=== PATIENT | male | born 1975 | race African-American/Black ===

== ENCOUNTER 2016-11-16 12:44 | Observation (INO) ==
[2016-11-16] MEDS ORDERED: Aspirin 81 MG TAB.CHEW PO ONE (12:55)
--- NOTE | 2016-11-16 13:08 | Emergency Department Note ---
Disposition Clinical Impression: Chest pain Qualifiers: Chest pain type: unspecified Qualified Code(s): R07.9 - Chest pain, unspecified Disposition: Admitted As Inpatient Condition: Fair Referrals: NONE,PCP [Primary Care Provider] - Forms: ED Satisfaction Letter Time of Disposition: 14:18 Chest Pain HPI - General Chief Complaint: ED Chest Pain Stated Complaint: Ekg changes Time Seen by Provider: 11/16/16 12:46 Source: patient Limitations: no limitations Vital Signs Reviewed: Yes Nursing Notes Reviewed: Yes - History of Present Illness HPI Narrative: 41-year-old who comes in complaining of chest pain and shortness of breath. Patient describes pain in his chest up into his left neck. Complains of some pain in his left shoulder region which radiates into his neck. Patient also describes the numbness in his left arm for the last 2 weeks. Onset (ago): week(s) (2) Duration: intermittent Onset: during rest, during exertion Pain Location: substernal, left chest Severity: moderate Severity scale (1-10): 6 Quality: tightness, heaviness Pain Radiation: LUE, neck Improves with: nothing Worsens with: nothing Context: other (History of previous fracture in the left arm resulting in some weakness of the hand) Treatments prior to arrival chest pain: none - Related Data Home Medications Medication Instructions Recorded Confirmed No Known Home Drugs 11/16/16 11/16/16 Allergies Allergy/AdvReac Type Severity Reaction Status Date / Time Penicillins Allergy Swelling Verified 11/16/16 12:48 of Lip/Tongue/Throat All systems ED: reviewed and negative except as stated. Constitutional: Denies: fever, chills, weakness, weight change Eyes: Denies: eye pain, eye discharge, vision change ENT ED: Denies: ear pain, throat pain, dental pain, hearing loss, epistaxis, congestion, dysphagia Cardiovascular: Denies: chest pain, palpitations, dyspnea on exertion, edema, syncope Respiratory: Denies: cough, dyspnea, wheezes, hemoptysis, stridor Gastrointestinal: Denies: abdominal pain, nausea, vomiting, diarrhea, constipation, hematemesis, melena, hematochezia Genitourinary: Denies: urgency, dysuria, frequency, hematuria Musculoskeletal: Denies: back pain, neck pain, arthralgia, myalgia Integumentary: Denies: rash, abrasion, lesions Neurological: Denies: headache, weakness, numbness, paresthesias, confusion, abnormal gait, vertigo Psychiatric: Denies: anxiety, depression, suicidal thoughts, homicidal thoughts , auditory hallucinations, visual hallucinations Endocrine: Denies: fatigue Hematological/Lymphatic: Denies: easy bleeding, easy bruising Allergic/Immunologic: Denies: facial swelling, urticaria Chest Pain PMH - Past Medical History Medical history: Reports: no medical history - Social History Smoking Status: Current every day smoker Alcohol use: Reports: occasionally Drug use: Reports: none Physical Exam - General Limitations: no limitations General appearance: alert, in no apparent distress Course - Reevaluation(s) Reevaluation #1: 41-year-old with risk factors comes in with intermittent chest pain. Workup in the emergency department is negative he also complains of some neck discomfort with radiation to his arm. Seems to have about 2 things going on it does appear that he may have a radiculopathy but he also has been having some intermittent chest pain but admits to rule out his chest pain and he may need a MRI of his neck to evaluate his radicular pain. Time: 14:16 - Consultations Consultation #1: Discussed with , admit. Time: 14:17 Vital Signs Temperature 97.9 F 11/16/16 12:45 Pulse Rate 80 11/16/16 12:45 Respiratory Rate 16 11/16/16 12:45 Blood Pressure 157/109 11/16/16 12:45 O2 Sat by Pulse Oximetry 97 11/16/16 12:45 Temperature 97.9 F 11/16/16 12:45 Pulse Rate 78 11/16/16 14:06 Respiratory Rate 18 11/16/16 14:06 Blood Pressure 133/95 11/16/16 14:06 O2 Sat by Pulse Oximetry 97 11/16/16 14:06 Oxygen Delivery Oxygen Delivery Room Air Chest Pain - Lab Data Lab results reviewed: Yes I reviewed the patient's lab results. Result diagrams: 11/16/16 13:13 11/16/16 13:13 Lab Results 11/16/16 11/16/16 11/16/16 Range/Units 13:13 13:13 13:13 WBC 8.2 (4.3-11.1) K/mcL RBC 5.55 H (4.19-5.50) M/mcL Hgb 15.3 (12.9-16.9) g/dL Hct 47.0 (37.5-50.1) % MCV 84.7 (83.0-100.0) fL MCH 27.6 L (28.0-33.3) pg MCHC 32.6 (31.6-35.5) g/dL RDW 14.7 H (11.5-14.5) % Plt Count 281 (140-400) K/mcL MPV 9.0 L (9.4-12.4) fL Immature Gran % 0.1 (0-4) % Seg Neutrophils % 52.8 % Lymphocytes % 34.8 % Monocytes % 9.6 % Eosinophils % 2.3 % Basophils % 0.4 % Neutrophils # 4.4 (1.6-8.9) K/mcL Lymphocytes # 2.9 (0.6-4.6) K/mcL Monocytes # 0.8 (0.0-1.3) K/mcL Eosinophils # 0.2 (0.0-0.6) K/mcL Basophils # 0.0 (0.0-0.2) K/mcL Immature Plt Fraction 3.1 (1.1-6.1) % PT 10.8 (9.4-12.1) Seconds INR 1.0 APTT 33.1 (26.0-36.0) Seconds Sodium 138 (136-145) mEq/L Potassium 4.1 (3.5-4.5) mEq/L Chloride 107 (98-109) mEq/L Carbon Dioxide 24 (19-29) mEq/L BUN 12 (8-26) mg/dL Creatinine 0.91 (0.72-1.25) mg/dL Est GFR ( Amer) > 60 (> 60) Est GFR (Non-Af Amer) > 60 (> 60) BUN/Creatinine Ratio 13 (6-26) Glucose 93 (70-99) mg/dL Calculated Osmolality 285 (280-300) Calcium 9.7 (8.6-10.8) mg/dL Troponin I (0-0.03) ng/mL 11/16/16 Range/Units 13:13 WBC (4.3-11.1) K/mcL RBC (4.19-5.50) M/mcL Hgb (12.9-16.9) g/dL Hct (37.5-50.1) % MCV (83.0-100.0) fL MCH (28.0-33.3) pg MCHC (31.6-35.5) g/dL RDW (11.5-14.5) % Plt Count (140-400) K/mcL MPV (9.4-12.4) fL Immature Gran % (0-4) % Seg Neutrophils % % Lymphocytes % % Monocytes % % Eosinophils % % Basophils % % Neutrophils # (1.6-8.9) K/mcL Lymphocytes # (0.6-4.6) K/mcL Monocytes # (0.0-1.3) K/mcL Eosinophils # (0.0-0.6) K/mcL Basophils # (0.0-0.2) K/mcL Immature Plt Fraction (1.1-6.1) % PT (9.4-12.1) Seconds INR APTT (26.0-36.0) Seconds Sodium (136-145) mEq/L Potassium (3.5-4.5) mEq/L Chloride (98-109) mEq/L Carbon Dioxide (19-29) mEq/L BUN (8-26) mg/dL Creatinine (0.72-1.25) mg/dL Est GFR ( Amer) (> 60) Est GFR (Non-Af Amer) (> 60) BUN/Creatinine Ratio (6-26) Glucose (70-99) mg/dL Calculated Osmolality (280-300) Calcium (8.6-10.8) mg/dL Troponin I 0.01 (0-0.03) ng/mL - Radiology Data Radiology results reviewed: Yes I reviewed the patient's radiology results. Chest X-Ray 11/16/16 12:55 IMPRESSION: 1. No active pulmonary disease. D/ / Marvin Cortes MD / Marvin Cortes MD Interpreting Provider: Marvin Cortes MD - EKG Data EKG attestation: Yes I reviewed and interpreted this EKG. EKG shows normal: sinus rhythm Rate: normal Rhythm: NSR Interpretation: no acute changes Heart Score - Score History: Slightly Suspicious EKG: Non Specific repolarisation Disturbance Age: Less than 45 Risk Factors: 1-2 risk factors Troponin: Less than normal limit HEART Score Total: 2
[2016-11-16 13:20] LABS: Basophils % 0.4 %; Eosinophils # 0.2 K/mcL (0.0-0.6); Eosinophils % 2.3 %; Hemoglobin 15.3 g/dL (12.9-16.9); Immature Granulocytes % 0.1 % (0-4); Immature Platelets 3.1 % (1.1-6.1); Lymphocytes # 2.9 K/mcL (0.6-4.6); Lymphocytes % 34.8 %; Mean Corpuscular HGB Conc 32.6 g/dL (31.6-35.5); Mean Corpuscular Hemoglobin 27.6 pg (28.0-33.3); Mean Corpuscular Volume 84.7 fL (83.0-100.0); Monocytes # 0.8 K/mcL (0.0-1.3); Monocytes % 9.6 %; Neutrophils # 4.4 K/mcL (1.6-8.9); Platelet Count 281 K/mcL (140-400); Red Blood Count 5.55 M/mcL (4.19-5.50); Red Cell Distribution Width 14.7 % (11.5-14.5); Segmented Neutrophils % 52.8 %
[2016-11-16 13:25] LABS: Prothrombin Time 10.8 Seconds (9.4-12.1)
[2016-11-16 13:28] LABS: Activated Partial Thrombo Time 33.1 Seconds (26.0-36.0)
[2016-11-16 13:36] LABS: BUN/Creatinine Ratio 13 (6-26); Blood Urea Nitrogen 12 mg/dL (8-26); Carbon Dioxide 24 mEq/L (19-29); Chloride 107 mEq/L (98-109); Potassium 4.1 mEq/L (3.5-4.5); Sodium 138 mEq/L (136-145)
[2016-11-16 13:37] LABS: Calcium 9.7 mg/dL (8.6-10.8); Glucose 93 mg/dL (70-99); Osmolality,Calculated 285 (280-300); eGFR For African Americans > 60 (> 60); eGFR For Non-African Americans > 60 (> 60)
[2016-11-16] MEDS ORDERED: *HR* HYDROcodone/Acet 5/325 mg TABLET PO ONE (13:58)
[2016-11-16] MEDS ORDERED: Ondansetron 4 MG/2 ML VIAL IVP PRN (15:26)
[2016-11-16] MEDS ORDERED: Acetaminophen 325 MG TABLET PO PRN (15:26)
[2016-11-16] MEDS ORDERED: Naloxone 0.4 MG/ML INJ IVP PRN (15:26)
[2016-11-16] MEDS ORDERED: Nitroglycerin 0.4 MG TAB.SUBL SL PRN (15:31)
--- NOTE | 2016-11-16 16:29 | Internal Med History&Physical ---
<Yeny Hidalgo - Last Filed: 11/16/16 16:46> Date of Encounter: 11/16/16 Time of Encounter: 15:00 Assessment and Plan (1) Chest pain Current visit: Yes Status: Acute 1 patient was awakened from sleep with left arm numbness radiating to his neck as well as stabbing left chest pain. He does have a past history of hypertension which she has not been compliant with any medication he is also a smoker. EKG was concerning for changes however upon review it appears there and no significant ST changes. There is some concern for LVH. First set of cardiac troponin is 0.01 we will continue to trend 2 we will obtain a cardiac echo 3 we will continue cardiac monitoring 4 continue with aspirin we will give statin obtain lipid profile 5 we will initiate beta heidi and lisinopril 6 patient has been experiencing chest pain we will give nitroglycerin as well as morphine-had anticipated on stress test in a.m. however chest pain continues we will hold off for now 7 oxygen as needed 8 consult cardiology as needed 9 encourage patient to stop smoking Qualifiers: Chest pain type: unspecified Qualified Code(s): R07.9 - Chest pain, unspecified (2) Hypertension, uncontrolled Current visit: Yes Status: Acute 1 patient has blood pressure 151 on 09. She states that he has been diagnosed with hypertension however he does not take any blood pressure medication. We will initiate lisinopril as well as metoprolol 2 continuous cardiac monitoring (3) Traumatic arthropathy Current visit: Yes Status: Acute 1 patient has been experiencing numbness into his left arm. He had a traumatic injury in 2014. He was supposed to undergo surgery on her cast R he infuse at that time. He did follow with Dr. Minaya in June of this year and was offered surgery however he has not followed up since. We will continue with Vicodin as needed for pain. Patient will need to follow up with orthopedics as out patient (4) Tobacco abuse Current visit: Yes Status: Acute Patient smokes a half a pack a day encouraged patient to stop smoking nicotine patch as needed Internal Medicine - H&P: HPI Chief complaint: CP Admitted From: Emergency Dept Plans for Post Hospital Care: Home History of present illness: Mr. Damon is a 41 year old male past medical history of hypertension and traumatic arthroplathy of the left wrist. According to the patient he was awakened from sleep experiencing left arm numbness that radiated to his left neck as well as a sharp stabbing pain in his left chest he rated 10 out of 10 he did experience diaphoresis nausea vomiting and he was short of breath. The pain was constant, there were no relieving factors Jordan did state that coughing sitting forward and deep breathing aggravated the pain. He states pain continued all morning it was intermittent and is more like an ache he did get to urgent care EKG was obtained which was concerning and he was sent to ER for evaluation. On arrival to the ER he was given 4 baby aspirin as well as some Vicodin and EKG was obtained his troponin was 0.01 chest x-ray with no acute process. EKG did show some ST inversion in 3 elevation in V2 V3 and V4 with compared to previous EKG really not changed. Appears to be indicative of LVH. He has been admitted for further workup and evaluation presently the patient does complain of 6 out of 10 chest pressure as well as his left arm has been none. He has had a past injury to this arm and she has not had followed up on these supposed to have surgery. He has not completed that. We will give patient some sublingual nitroglycerin C that improves his chest pain. His lung sounds are clear heart sounds are regular S1 and S2 with no rubs, gallops or murmurs noted abdomen soft nontender he has pulses present all 4 extremities brisk capillary refill no pedal edema. He is somewhat hypertensive as well he states that he has been diagnosed with hypertension however he has not taken any medication. I did review this case as well as EKGs with Dr. Richardson who agrees with plan Past Med Surg Social Fam HX - Past Medical History Medical history: no medical history - Social History Smoking Status: Current every day smoker Smokeless Tobacco Status: No Alcohol use: occasionally Drug use: none - Family History Mother Living Status: Still Living Hx Family Cardiac Disorders: Yes (Hypertension) Father Living Status: Still Living Hx Family Cardiac Disorders: Yes (Hypertension) Internal Medicine - H&P: Meds No Known Home Drugs 11/16/16 [History] 3 Allergy/AdvReac Type Severity Reaction Status Date / Time Penicillins Allergy Swelling Verified 11/16/16 12:48 of Lip/Tongue/Throat All Systems PM: A 10-system review of systems was performed and is negative for pertinent findings except as documented above in the HPI. - Constitutional Constitutional: no chills, no fever(s), no night sweats - EENT Eyes: no change in vision, no discharge, no pain, no photophobia Nose, mouth and throat: no dysphagia, no nasal discharge, no neck pain, no sore throat - Cardiovascular Cardiovascular ROS IM: chest pain, no diaphoresis, no dyspnea, no lightheadedness, no palpitations, no syncope - Gastrointestinal Gastrointestinal: nausea, vomiting - Musculoskeletal Musculoskeletal ROS IM: numbness, tingling - Integumentary Integumentary IM: no rash, no unusual bruising - Neurological Neurological ROS: no confusion, no convulsions, no focal weakness, no numbness, no tingling, no tremor(s) - Hematologic/Lymphatic Hematologic/Lymphatic: no easy bruising - Constitutional Vitals: Temp Pulse Resp BP Pulse Ox 98.0 F 74 16 150/97 97 11/16/16 15:46 11/16/16 15:46 11/16/16 15:46 11/16/16 15:46 11/16/16 15:46 General appearance: Present: A&O X 3, answers questions appropriately - Head Head exam: Present: atraumatic, normocephalic - Eye Eye exam: Present: PERRL, conjuntiva pink, sclera anicteric Pupils: Present: PERRL - Neck Neck exam general surgery: Present: supple, trachea midline. Absent: lymphadenopathy - Respiratory Respiratory exam: Present: CTAB. Absent: accessory muscle use, rales, rhonchi, wheezes - Cardiovascular Cardiovascular exam: Present: RRR, +S1, +S2. Absent: diastolic murmur, gallop, rubs, systolic murmur - GI/Abdominal GI/Abdominal exam: Present: normal bowel sounds, soft, no peritoneal signs. Absent: distended, tenderness - Extremities Exam Extremities exam: Present: normal capillary refill, normal inspection, tenderness, warm, radial pulses palpable and symmetrical. Absent: calf tenderness, cyanotic, pedal edema - Neurological Exam Neurological exam: Present: CN II-XII intact, oriented X3, no focal deficits. Absent: pronater drift, facial droop, speech deficit - Skin Skin exam: Present: dry, intact Internal Med - H&P Results - Labs CBC & Chem 7: 11/16/16 13:13 11/16/16 13:13 - EKG Data EKG shows normal: sinus rhythm - EKG Data Prior EKG available for review: yes When compared to previous EKG: there is no significant change - Diagnostic Studies Other Images Additional comments: Chest X-Ray 11/16/16 12:55 IMPRESSION: 1. No active pulmonary disease. D/ / Marvin Cortes MD / Marvin Cortes MD Interpreting Provider: Marvin Cortes MD <Alyse Richardson - Last Filed: 11/16/16 18:34> Date of Encounter: 11/16/16 Internal Medicine - H&P: HPI History of present illness: Mr. Damon is a 41 year old male All Systems PM: A 10-system review of systems was performed and is negative for pertinent findings except as documented above in the HPI. - Constitutional Vitals: Temp Pulse Resp BP Pulse Ox 98.0 F 74 16 150/97 97 11/16/16 15:46 11/16/16 15:46 11/16/16 15:46 11/16/16 15:46 11/16/16 15:46 Internal Med - H&P Results - Labs CBC & Chem 7: 11/16/16 13:13 11/16/16 13:13 - Attending Attestation I saw and examined pt independently. I have discussed with FORGE TENDER Tacho Hidalgo regarding the management plan. Agree with documentation. Pt has left side chest pain for 4 weeks, worsen on deep breath. Pt said pain getting worse on laying down and alleviated when sitting up. EKG cannot confirm pericarditis change. Will order Echo. Pt denies recent travel, leg pain, or leg swelling. No tachycardia or hypoxia. Low likely for PE. 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 Will also track 3 sets of troponin and keep pt on cardiac monitoring. Pt also has chest wall tenderness, it is also possible skeletomuscular pain. will place naproxen 250mg po bid.
[2016-11-16] MEDS: Nicotine 21 MG PATCH.TD24 TD SCH (16:52)
[2016-11-16] MEDS: *HR* Morphine 2 MG/ML SYRINGE IVP PRN (16:52)
[2016-11-16] MEDS: *HR* HYDROcodone/Acet 5/325 mg TABLET PO PRN (20:08)
[2016-11-17 01:54] LABS: Basophils % 0.3 %; Eosinophils # 0.2 K/mcL (0.0-0.6); Eosinophils % 2.8 %; Hematocrit 44.8 % (37.5-50.1); Hemoglobin 14.4 g/dL (12.9-16.9); Immature Granulocytes % 0.3 % (0-4); Immature Platelets 2.8 % (1.1-6.1); Lymphocytes # 3.6 K/mcL (0.6-4.6); Lymphocytes % 49.1 %; Mean Corpuscular HGB Conc 32.1 g/dL (31.6-35.5); Mean Corpuscular Hemoglobin 27.2 pg (28.0-33.3); Mean Corpuscular Volume 84.5 fL (83.0-100.0); Mean Platelet Volume 9.7 fL (9.4-12.4); Monocytes # 0.6 K/mcL (0.0-1.3); Monocytes % 7.9 %; Neutrophils # 2.9 K/mcL (1.6-8.9); Platelet Count 278 K/mcL (140-400); Red Cell Distribution Width 14.5 % (11.5-14.5); Segmented Neutrophils % 39.6 %
[2016-11-17 02:09] LABS: BUN/Creatinine Ratio 15 (6-26); Blood Urea Nitrogen 15 mg/dL (8-26); Calcium 9.2 mg/dL (8.6-10.8); Carbon Dioxide 25 mEq/L (19-29); Chloride 105 mEq/L (98-109); Chol/HDL Ratio 3.1 (0-4.9); Cholesterol 200 mg/dL (< 200); Glucose 142 mg/dL (70-99); HDL Cholesterol 65 mg/dL (40-59); LDL Cholesterol,Calculated 107 mg/dL (0-99); Magnesium 2.1 mg/dL (1.6-2.6); Osmolality,Calculated 291 (280-300); Potassium 3.9 mEq/L (3.5-4.5); Sodium 139 mEq/L (136-145); Triglycerides 140 mg/dL (< 150); eGFR For African Americans > 60 (> 60); eGFR For Non-African Americans > 60 (> 60)
[2016-11-17] MEDS: Aspirin 81 MG TAB.CHEW PO SCH (08:43)
[2016-11-17] MEDS: Nicotine 21 MG PATCH.TD24 TD SCH (08:59)
[2016-11-17] MEDS ORDERED: Regadenoson 0.4 MG/5 ML SYRINGE IVP ONE ×2 (11:33→11:44)
--- NOTE | 2016-11-17 14:32 | Nuclear Medicine Stress Report ---
Low Level Regadenoson Name: Abdullahi Damon Date of Study: 11/17/2016 Date: 1975 Ht: 73.0 in Medical Record#: [id number] Age: 41 Wt: 230.0 lb Gender: Male Order #: [id number] Location: [facility] Room: Supervising Provider: Jihan Cat CNP Reading Physician: Arabella Powers DO Ordering Physician: Gali Joshua CNP Primary Care Physician: None Stress Technologist: Dottie Bernal, PUBLICATIONS DESIGNER,CPFT Cellular Equipment Repairer: Lesa Vang Indications: Chest Pain Impression: There is a small defect involving the inferior apical wall and apex representing mild ischemia. No appreciable change in low level exercise ECG from baseline. Blood pressure initially increases but then drops at peak exercise. Gated EF = 45%. There is visual evidence of TID. Abnormal findings communicated to ordering provider. History: Hypertension Hypercholesteremia History of Smoking Stress Test Summary: Stress Test Type: Low level pharmacologic Regadenoson 0.4mg/5ml given IV Baseline Information: Initial Heart Rate: 72 Blood Pressure: 118/82 Stress Information: Stress Time: 4 min 00 sec Test Terminated Due to (primary): As per protocol Maximum Blood Pressure: 146/70 Maximum Heart Rate: 109 Percent Maximum Heart Rate Achieved: 62 Double Product: 18552 METS Reached: 2.1 Symptoms: Chest pain Nuclear Summary: SPECT myocardial perfusion imaging using Tc99m Sestamibi given intravenously was performed at rest and following cardiac stress testing. The resting images were obtained following initial dose of 10.9 mCi. Following stress an additional dose of 33.6 mCi was given at peak exercise or 30 seconds post regadenoson infusion. Medication Given: Time Medication Dose Units Route Findings: Stress Note * Resting ECG demonstrated normal sinus rhythm with early repolarization. * No appreciable change in low level exercise ECG from baseline. * Patient had no chest pain during stress. * No arrhythmias were noted during stress. Hemodynamic responses * Blood pressure decreases during stage 4 of exercise (146/70 during stage 2, decreasing to 116/60 during stage 4). Study Quality * Technically quality is fair. Gated EF % * Gated EF = 45%. Left Ventricle * LVEDV = LV is mildly dilated. TID * There is visual transient ischemic dilatation. Lung Uptake * There is no evidence of increase lung uptake. PERFUSION * There is a mild intensity perfusion defect involving the apical inferior wall and apex during stress. These findings represent mild ischemia. * Other segments demonstrated normal rest and stress perfusion. Updated by Arabella Powers on 11/17/2016 2:21:34 PM electronically signed on 11/17/2016 2:26:46 PM with status of Final
[2016-11-17] MEDS: *HR* Morphine 2 MG/ML SYRINGE IVP PRN ×2 (14:55→18:54)
--- NOTE | 2016-11-17 16:01 | Cardiology Consult Note ---
Date of Encounter: 11/17/16 Time of Encounter: 15:40 Assessment and Plan (1) Chest pain Current Visit: Yes Status: Acute Tropnins are not elevated on 2 readings. EKG from 11/16/16 compared to one from show no significant acute changes. His risk factors for CAD include history of smoking and obesity. Patient's stress test shows a borderline normal EF of 45%. The concerning result from the test was the evidence of TID, which can be indicative of multivessel disease, however it is not specific enough. Discussed with patient my recommendation to proceed with a cardiac catheterization tomorrow, for which he agreed. Qualifiers: Chest pain type: unspecified Qualified Code(s): R07.9 - Chest pain, unspecified (2) Hypertension Current Visit: Yes Status: Acute Patient's BP range has been from 119/79 - 150/97 in the past 24 hours. Continue Lopressor and lisinopril. Qualifiers: Qualified Code(s): I10 - Essential (primary) hypertension (3) Left arm pain Current Visit: Yes Status: Acute Unsure if L arm pain is related to any cardiac reasons. Giving the presence of the pain in his L arm before the onset of his chest pain and based on his physical exam, his pain seems more likely to be muscular in origin. He will need to follow-up with his PCP. Discussion w patient/family: The assessment and plan as outlined above was discussed with the patient and/or family members who expressed understanding and agreement. All questions were answered. Thank you for involving us in the care of your patient. Please call with any questions. History of Present Illness Consult date: 11/17/16 Requesting physician: Gali Joshua Consult reason: Abnormal stress test Chief complaint: Chest pain History of present illness: Mr. Damon is a 41 year old male with PMH of arthroplathy of the L wrist presents for chest pain. Patient says 2 nights ago, he was sleeping and suddenly started to develop chest pain with radiation to the L side of his neck. He describes the pain as sharp/stabbing, constant, rates it as a 10/10, and without any relieving factors. Deep breathing would aggravate the pain. He also admitted to diaphoresis, nausea, vomiting, and shortness of breath. Patient is also complaining of numbness/tingling in his L arm, but he says that has been going on for the past 2 weeks and had been present before the chest pain. Patient also describes that for the past 2 weeks, his quality of life has declined. The most active thing he would be able to do 2 weeks prior would be to play basketball, but now he experiences shortness of breath with just climbing a flight of stairs. He has also been experiencing nausea, vomiting, headaches, dizziness, and vision blurriness. He denies syncope. He also admits that he has been coughing for the past 2 weeks as well. He denies any fever, chills, or swelling. He is currently a smoker and has a 5 pack year history. His L arm pain and numbness has been constant for the past 2 weeks and says that raising his arm seems to aggravate the pain more. Past Med Surg Social Fam HX - Past Medical History Medical history: no medical history - Social History Smoking Status: Current every day smoker Smokeless Tobacco Status: No Alcohol use: occasionally Drug use: none - Family History Father Living Status: Still Living Hx Family Cardiac Disorders: Yes (HTN) Mother Living Status: Still Living Hx Family Cardiac Disorders: Yes (HTN) Hx Family Respiratory Disorders: Yes (COPD) Medications and Allergies No Known Home Drugs 11/16/16 [History] 3 Allergy/AdvReac Type Severity Reaction Status Date / Time Penicillins Allergy Swelling Verified 11/16/16 12:48 of Lip/Tongue/Throat All Systems Review: A 10-system review of systems was performed and is negative for pertinent findings except as documented above in the HPI. - Constitutional Constitutional: weakness, no headache(s) - Cardiovascular Cardiovascular: lightheadedness, palpitations, rapid heart rate, no chest pain at rest, no chest pain with exertion, no dyspnea at rest, no syncope - Respiratory Respiratory: no cough - Gastrointestinal Gastrointestinal: no abdominal pain - Neurological Neurological: numbness (L arm), tingling (L arm), no dizziness, no loss of vision Physical Examination Vital Signs, Last 4 Hours Temp Pulse Resp BP Pulse Ox 11/17/16 15:42 98.0 F 66 14 119/80 98 11/17/16 12:48 98.7 F 64 14 123/87 99 General: Conversant Neck: No JVD, Normal carotid pulses Cardiac: Reg Rate and Rhythm, Normal S1 and S2, No Murmur Lungs: Normal Breath Sounds, No Wheeze, Rales, Rhonchi Neuro: Alert and responsive Abdomen: Soft, Non-Tender Musculoskeletal: Other (Chest wall tenderness noted in upper L region. ) Extremities: No Clubbing, No Cyanosis, No Edema, Normal Pulses, Other (Patient has decreased sensation in his entire L arm. 4/5 strength in the L upper extremeity. 5/5 strength in the R upper extremeity. Patient displayed pain with internal rotation of the L arm.) Results 11/17/16 01:15 11/17/16 01:15 Lab Results 11/16/16 11/17/16 11/17/16 18:35 01:15 01:15 WBC 7.2 Hgb 14.4 Hct 44.8 Plt Count 278 D-Dimer Sodium Potassium Chloride Carbon Dioxide BUN Creatinine Glucose Calcium Magnesium Troponin I 0.00 0.00 11/17/16 11/17/16 01:15 01:15 WBC Hgb Hct Plt Count D-Dimer < 215 Sodium 139 Potassium 3.9 Chloride 105 Carbon Dioxide 25 BUN 15 Creatinine 1.00 Glucose 142 H Calcium 9.2 Magnesium 2.1 Troponin I - Imaging and Cardiology Stress Test: report reviewed (Small defect invlolving the inferior apical wall and apex representing mild ischemia. No appreciable change in low level exercise ECG from baseline. EF = 45%. Visuable evidence of TID.) Echo: report reviewed (LVEF 50-55%. Low normal LV systolid function. Evidence of mild diastolic dysfunction of the LV. Normal RV size and function. Mild mitral regurgitation. Without pulmonary hypertension.) - EKG Interpretation EKG results cardiology: personally reviewed (Compared EKG from 11/16/16 to 2006 and found no significant acute changes. Sinus rhythm. No ST elevations noted.) Consult Discharge Plan - Plan Referrals: NONE,PCP [Primary Care Provider] -
--- NOTE | 2016-11-17 17:06 | Internal Med Progress Note ---
Date of Encounter: 11/17/16 Time of Encounter: 16:30 - Assessment and plan (1) Chest pain Current Visit: Yes Status: Acute Assessment and plan: Patient currently complains of left shoulder pain, concern for possible anginal equivalent although his shoulder pain is reproducible with movement and palpation. Cannot entirely exclude anginal equivalent, continue morphine for pain. Troponin negative 3. Chest x-ray negative. Echocardiogram revealing ejection fraction of 50-55% with mild diastolic dysfunction. Stress test abnormal, cardiology is on board, plan is for left heart catheter tomorrow. Qualifiers: Chest pain type: unspecified Qualified Code(s): R07.9 - Chest pain, unspecified (2) Hypertension, uncontrolled Current Visit: Yes Status: Chronic Assessment and plan: Patient is aware that he has had high blood pressure in the past but states she does not take any medications and he has not had any follow-up with providers. Currently normotensive on low-dose lisinopril and beta heidi. Will monitor. (3) Tobacco abuse Current Visit: Yes Status: Chronic Assessment and plan: Declines counseling at this time. Nicotine replacement therapy. 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 He is supposed to have surgery on his left wrist however he states that this surgery would have put him in a cast for 5 months so he has refused to get this surgery. Recommend avoiding using left wrist for left heart catheter tomorrow if possible. On examination, patient's range of motion is limited in his shoulder secondary to pain. Concern for rotator cuff injury. He states his pain is been worsened and present in his shoulder for the last 2 weeks. He denies any recent injuries. Will rule out anginal equivalent with left heart catheter tomorrow. He will need to follow up outpatient with orthopedics. Patient attempted to reassure me that he would follow up if we set him up with a new primary care provider and with an orthopedic doctor. His however remains skeptical. Unfortunately, inpatient MRI of left shoulder would not be indicated -will need to be done on outpatient basis - Subjective Interval history: Patient seen and examined. On examination, patient sitting upright in bed conversing with his . Patient complaining of left shoulder and left arm pain that has been persistent for the past 2 weeks. Worsened with movement. He denies shortness of breath. He states he is hungry. - Constitutional Vitals: Temp Pulse Resp BP Pulse Ox 98.0 F 66 14 119/80 98 11/17/16 15:42 11/17/16 15:42 11/17/16 15:42 11/17/16 15:42 11/17/16 15:42 General appearance: Present: A&O X 3, pleasant, no acute distress, answers questions appropriately - Head Head exam: Present: atraumatic, normocephalic - Eye Eye exam: Present: PERRL, conjuntiva pink, sclera anicteric Pupils: Present: PERRL - Neck Neck exam general surgery: Present: supple, trachea midline. Absent: lymphadenopathy - Respiratory Respiratory exam: Present: CTAB. Absent: accessory muscle use, rales, respiratory distress, rhonchi, wheezes - Cardiovascular Cardiovascular exam: Present: RRR, +S1, +S2. Absent: diastolic murmur, gallop, rubs, systolic murmur - GI/Abdominal GI/Abdominal exam: Present: normal bowel sounds, soft, no peritoneal signs. Absent: distended, tenderness - Extremities Exam Extremities exam: Present: warm, radial pulses palpable and symmetrical. Absent : calf tenderness, cyanotic, pedal edema - Expanded Upper Extremities Exam Shoulder exam: Present: normal inspection, tenderness, tenderness over AC joint. Absent: full ROM (2/2 pain) Vascular exam: Present: normal capillary refill. Absent: vascular compromise - Neurological Exam Neurological exam: Present: alert, CN II-XII intact, normal gait, oriented X3, no focal deficits, strengths equal and symetr throughout. Absent: pronater drift, facial droop, speech deficit - Skin Skin exam: Present: dry, intact, normal color, warm Internal Medicine: Result - Labs CBC & Chem 7: 11/17/16 01:15 11/17/16 01:15 Labs: Short CBC 11/17/16 Range/Units 01:15 WBC 7.2 (4.3-11.1) K/mcL Hgb 14.4 (12.9-16.9) g/dL Hct 44.8 (37.5-50.1) % Plt Count 278 (140-400) K/mcL Neutrophils # 2.9 (1.6-8.9) K/mcL BMP 11/17/16 01:15 Sodium 139 Potassium 3.9 Chloride 105 Carbon Dioxide 25 BUN 15 Creatinine 1.00 Glucose 142 H Calcium 9.2 Cardiac Enzymes 11/16/16 11/17/16 Range/Units 18:35 01:15 Troponin I 0.00 0.00 (0-0.03) ng/mL - ABG Interpretation ABG results: PT/INR, D-dimer PT 10.8 Seconds (9.4-12.1) 11/16/16 13:13 D-Dimer < 215 ng/mLFEU (0-500) 11/17/16 01:15 Consult Discharge Plan - Plan Referrals: NONE,PCP [Primary Care Provider] -
--- NOTE | 2016-11-17 18:32 | Electrocardiograph Report ---
[address] [address] Test Date: 2016-11-16 Pat Name: Abdullahi Damon Department: 102 Room: 3B Gender: M Petroleum Production Engineer: : 1975 Requested By: Mitul Shaffer Order Number: [id number] Reading MD: Arabella Powers Measurements Intervals [place] Rate: 80 P: 53 CO: 167 QRS: 14 QRSD: 96 T: 0 QT: 373 QTc: 408 Interpretive Statements SINUS RHYTHM VOLTAGE CRITERIA FOR LVH EARLY REPOLARIZATION Electronically Signed On 11-17-2016 18:30:22 EDT by Arabella Powers
[2016-11-18] MEDS: *HR* Morphine 2 MG/ML SYRINGE IVP PRN ×2 (00:56→09:17)
[2016-11-18] MEDS: Aspirin 81 MG TAB.CHEW PO SCH (08:24)
[2016-11-18] MEDS: Nicotine 21 MG PATCH.TD24 TD SCH (09:16)
--- NOTE | 2016-11-18 09:23 | Pre-Sedation Evaluation ---
Pre-sedation evaluation - Pre-sedation checklist Date of procedure: 11/18/16 Procedure: [facility] Recent Vitals: Last Vital Signs Temp 97.7 F 11/18/16 07:32 Pulse 68 11/18/16 07:32 Resp 16 11/18/16 07:32 BP 123/72 11/18/16 07:32 Pulse Ox 97 11/18/16 07:32 H&P (including ROS) documented in medical record: Yes Previous reaction to sedatives/anesthetics: No Dietary Status: NPO after Midnight Airway Assessment: Patient can open mouth completely, TMJ function normal Dentition: No loose teeth or bridges ASA Classification *see protocol: CLASS II-Mild systemic disease Plan of Care: Pt appropriate candidate for procedure/moderate/conscious sedation , Risks/benefits of procedure/sedation discussed w/ patient/family
[2016-11-18] MEDS ORDERED: *HR* Morphine 2 MG/ML SYRINGE IVP ONE (09:56)
[2016-11-18] MEDS ORDERED: *HR* Morphine 2 MG/ML SYRINGE IVP PRN (09:57)
--- NOTE | 2016-11-18 10:19 | Internal Med Progress Note ---
Date of Encounter: 11/18/16 Time of Encounter: 09:30 - Assessment and plan (1) Chest pain Current Visit: Yes Status: Acute Assessment and plan: Patient currently complains of left shoulder pain, concern for possible anginal equivalent although his shoulder pain is reproducible with movement and palpation. Cannot entirely exclude anginal equivalent. Patient stating his pain was not helped with the current morphine dose, dosage increased at this time. Troponin negative 3. Chest x-ray negative. Echocardiogram revealing ejection fraction of 50-55% with mild diastolic dysfunction. Stress test abnormal, cardiology is on board, plan is for left heart catheter later today. ITS Impressions Chest X-Ray 11/16/16 12:55 IMPRESSION: 1. No active pulmonary disease. D/ / Marvin Cortes MD / Marvin Cortes MD Interpreting Provider: Marvin Cortes MD Echocardiogram Date of Study: 11/17/2016 Impressions: LVEF 50-55%. Low normal LV systolic function. There is evidence of mild diastolic dysfunction of the left ventricle. Normal right ventricular size and function. Mild mitral regurgitation. No pulmonary hypertension. Low Level Regadenoson Date of Study: 11/17/2016 Impression: There is a small defect involving the inferior apical wall and apex representing mild ischemia. No appreciable change in low level exercise ECG from baseline. Blood pressure initially increases but then drops at peak exercise. Gated EF = 45%. There is visual evidence of TID. Abnormal findings communicated to ordering provider. Qualifiers: Chest pain type: unspecified Qualified Code(s): R07.9 - Chest pain, unspecified (2) Hypertension, uncontrolled Current Visit: Yes Status: Chronic Assessment and plan: Patient is aware that he has had high blood pressure in the past but states she does not take any medications and he has not had any follow-up with providers. Currently normotensive on low-dose lisinopril and beta heidi. Will monitor. (3) Tobacco abuse Current Visit: Yes Status: Chronic Assessment and plan: Declines counseling at this time. Nicotine replacement therapy. 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 He is supposed to have surgery on his left wrist however he states that this surgery would have put him in a cast for 5 months so he has refused to get this surgery. Recommend avoiding using left wrist for left heart catheter tomorrow if possible. On examination, patient's range of motion is limited in his shoulder secondary to pain. Concern for rotator cuff injury. He states his pain is been worsened and present in his shoulder for the last 2 weeks. He denies any recent injuries. Will rule out anginal equivalent with left heart catheter later today. He will need to follow up outpatient with orthopedics. Patient attempted to reassure me that he would follow up if we set him up with a new primary care provider and with an orthopedic doctor. His however remains skeptical. Unfortunately, inpatient MRI of left shoulder would not be indicated -will need to be done on outpatient basis - Subjective Interval history: Patient seen and examined. On examination, patient resting supine in bed conversing with his . Patient stating he continues to have left shoulder pain and a dull ache to his left anterior chest. He states the pain was not abated with morphine and is requesting an increase in his dose. He denies shortness of breath at this time. - Constitutional Vitals: Temp Pulse Resp BP Pulse Ox 97.7 F 68 16 123/72 97 11/18/16 07:32 11/18/16 07:32 11/18/16 07:32 11/18/16 07:32 11/18/16 07:32 General appearance: Present: A&O X 3, pleasant, no acute distress, answers questions appropriately - Head Head exam: Present: atraumatic, normocephalic - Eye Eye exam: Present: PERRL, conjuntiva pink, sclera anicteric Pupils: Present: PERRL - Neck Neck exam general surgery: Present: supple, trachea midline. Absent: lymphadenopathy - Respiratory Respiratory exam: Present: chest wall tenderness, decreased breath sounds. Absent: accessory muscle use, rales, respiratory distress, rhonchi, wheezes - Cardiovascular Cardiovascular exam: Present: RRR, +S1, +S2. Absent: diastolic murmur, gallop, rubs, systolic murmur - GI/Abdominal GI/Abdominal exam: Present: normal bowel sounds, soft, no peritoneal signs. Absent: distended, tenderness - Extremities Exam Extremities exam: Present: warm, radial pulses palpable and symmetrical. Absent : calf tenderness, cyanotic, pedal edema - Expanded Upper Extremities Exam Shoulder exam: Present: normal inspection, tenderness, tenderness over AC joint Vascular exam: Present: normal capillary refill. Absent: vascular compromise - Neurological Exam Neurological exam: Present: alert, CN II-XII intact, oriented X3, no focal deficits, strengths equal and symetr throughout. Absent: pronater drift, facial droop, speech deficit - Skin Skin exam: Present: dry, intact, normal color, warm Internal Medicine: Result - Labs CBC & Chem 7: 11/17/16 01:15 11/17/16 01:15 - ABG Interpretation ABG results: PT/INR, D-dimer PT 10.8 Seconds (9.4-12.1) 11/16/16 13:13 D-Dimer < 215 ng/mLFEU (0-500) 11/17/16 01:15 Consult Discharge Plan - Plan Referrals: NONE,PCP [Primary Care Provider] -
[2016-11-18] MEDS ORDERED: *HR* Heparin 10,000 UNIT/10 ML VIAL ONE (14:20)
[2016-11-18] MEDS ORDERED: Verapamil 5 MG/2 ML VIAL ONE (14:20)
[2016-11-18] MEDS ORDERED: Nitroglycerin 1,000 MCG/10 ML VIAL IV ONE (14:20)
[2016-11-18] MEDS ORDERED: Heparin 1,000 UNITS/500 mL NS 500 ML ONE (14:20)
[2016-11-18] MEDS ORDERED: 0.9 % Sodium Chloride 2,000 ML ONE (14:20)
[2016-11-18] MEDS ORDERED: *HR* Midazolam HCl 2 MG/2 ML VIAL ONE (14:42)
[2016-11-18] MEDS ORDERED: *HR* FentaNYL (PF) 100 MCG/2 ML VIAL ONE (14:43)
--- NOTE | 2016-11-18 15:37 | Invasive Diagnostic Lab Proc ---
Name: Abdullahi Damon Date of Study: 11/18/2016 Date: 1975 Ht: 72.8in Medical Record#: [id number] Age: 41 Wt: 238.54lb Gender: Male BSA: 2.31 Order #: [id number] BMI: 31.65 Physicians Procedure Physician: Tanner Hagan MD, [facility] Referring MD: Referring MD: Staff Name Position Time In Geovani, Vladimir RN Zanjero 02:31 PM Nubia Hancock RN Monitor 02:31 PM Selma Brown RN Nurse 02:31 PM Jv Atkinson RT (R) Scrub 02:31 PM Leticia Connors RT (R) Monitor 02:31 PM Indications Indication Abnormal Test - Stress Procedures Performed Procedure L HRT ARTERY/VENTRICLE ANGIO Pre-Procedure Checklist Pt not NPO for procedure and MD aware. Blood Pressure: 123/72 Plan of Care Patient will tolerate the procedure without complications. Adequate level of comfort will be maintained. Hemodynamics will remain stable Patient will recover from procedure without complications. Respiratory function will be maintained. Cardiac rhythm will remain stable. Patient temperature will be maintained. Patient and/or family have verbalized understanding of the procedure. Patient Education Chief Complaint/Reason for Test: Cardiac Cath Developmental Category: Adult (18-64 years) Developmentally Appropriate for Age: Yes Learning Barriers: None Education Needs: Procedure Education Method: Verbal Information Taught: Cardiac Cath Educational Evaluation: Able to repeat information Intravenous Access Time IV Size Location DC'd Fluid/Drip Rate Units RN 20g 1 1/" Patent On Arrival Rt Antecubital Allergies PCN Vital Signs Time BP (mmHg) HR (bpm) O2 Sat. RR (bpm) LOC 123 / 72 68 97 % 16 02:45 PM / % 5 = Fully awake and oriented or at pre-proc level 02:45 PM / % 4 = Oriented but drowsy 03:00 PM / % 4 = Oriented but drowsy 02:44 PM 133 / 82 60 100 % 02:50 PM 124 / 79 65 100 % 18 02:54 PM 125 / 79 68 98 % 13 03:00 PM 120 / 75 61 99 % 14 03:05 PM 109 / 60 67 97 % 14 03:10 PM 116 / 56 65 97 % 13 03:15 PM 114 / 58 72 97 % 14 03:20 PM 123 / 63 64 97 % 27 03:15 PM / % 4 = Oriented but drowsy Procedural Medications Time Medication Dose Units Method Given By 02:41 PM 0.9NaCl 50 ml/hr Intravenous Vladimir Olivo RN 02:42 PM Oxygen 2 L/min nasal cannula Vladimir Olivo RN 02:44 PM Versed 2 mg Intravenous Vladimir Olivo RN 02:44 PM Fentanyl 50 mcg Intravenous Vladimir Olivo RN 03:00 PM Heparin 4000 units Nitroglycerin 200 mcg Verapamil 2.5 mg Intraarterial Tanner Hagan MD, [facility] ASA Classification: CLASS II- Mild systemic disease (i.e. well-controlled diabetes, hypertension, asthma, cigarette smoking) Brandon Score Preprocedure Postprocedure Activity 2- Moves 4 extremities sustained head lift Activity 2- Moves 4 extremities sustained head lift Circulation 2- SBP +/= 20 points of pre-anesthetic level Circulation 2- SBP +/= 20 points of pre-anesthetic level Consciousness 2- Awake and alert oriented x 3 Consciousness 2- Awake and alert oriented x 3 O2 Saturation 2- Able to maintain O2 satruation of 92% on room air O2 Saturation 2- Able to maintain O2 satruation of 92% on room air Respiratory 2- Able to deep breathe and cough well Respiratory 2- Able to deep breathe and cough well Total Score 10 Total Score 10 Contrast Agent: Isovue Diagnostic Contrast: 93 ml Total Contrast: 93 ml Fluoro Dose: 508 mGy Procedure Log Time Note Enter By 02:31 PM Vladimir Olivo RN Position: Zanjero Time in: 14:31 roni 02:31 PM Nubia Hancock RN Position: Monitor Time in: 14:31 roni 02:31 PM Selma Brown RN Position: Nurse Time in: 14:31 roni 02:31 PM Jv Atkinson RT (R) Position: Scrub Time in: 14:31 [facility] PM Leticia Connors RT (R) Position: Monitor Time in: 14:31 [facility] PM Pt arrived to chemistry lab instructor 2 at 14:35 [facility] 02:35 PM Patient charges- Angio tray pack, Navilyst 3mm J, Pulse Oximetry and ACIST tubing and transducer jcallmarilyn 02:36 PM Case Delayed No jcallan 02:37 PM CathStat 02:37 PM ASA Class CLASS II- Mild systemic disease (i.e. well-controlled diabetes, hypertension, asthma, cigarette smoking) mmers 02:39 PM Physicmarilyn paged/called 14:[facility] PM Physicmarilyn responded and notified patient is ready 14:39 [facility] 02[facility] PM Physician arrived 14:[address] [facility] 02:40 PM Meet and greet completed [facility] 02:40 PM Sign in performed according to hospital policy. mmers 02:40 PM [facility] 02:[facility] PM Case Start 02:41 PM Time: 14:41 0.9NaCl 50 ml/hr Intravenous Given by Vladimir Olivo RN 02:42 PM Time: 14:42 Oxygen on at 2 L/min per nasal cannula by Vladimir Olvio RN 02:44 PM Vitals capture started with the following parameters, Patient=Adult, Interval=5 min, Initial Aphqvruz=433 mmHg, Deflation Rate=5 mmHg, Cuff placed on Right Arm 02:44 PM Time: 14:44 Versed 2 mg Intravenous Given by Vladimir Olivo RN 02:44 PM HR=60 bpm, ONMR=155/82 mmhg, EhN0=773.0 %, Comment=sinus 02:45 PM Time: 14:44 Fentanyl 50 mcg Intravenous Given by Vladimir Olivo RN 02:45 PM Time: 14:45 Patient comfortable and pain free: Yes [facility] 02:45 PM Time: 14:45LOC: 5 = Fully awake and oriented or at pre-proc level [facility] 02:46 PM Hair removed from procedure site in procedure lab using clippers. Right wrist & right groin prepped with Chloraprep by Jv Atkinson RT (R), safety strap applied then patient was draped. Skin intact. [facility] 02:50 PM HR=65 bpm, CDBN=015/79 mmhg, DiJ1=546.0 %, Resp=18 B/min, Comment=sinus 02:50 PM Recorded ECG: HR=70 Condition=Condition 1 02:50 PM Pressure channel 1 zeroed. 02:52 PM Pressure channel 1 zeroed. 02:54 PM Clinical Presentation: Unstable angina tsmmers 02:54 PM HR=68 bpm, IZOX=015/79 mmhg, SpO2=98.0 %, Resp=13 B/min, Comment=sinus 02:58 PM Time out performed according to hospital policy oumm 03:00 PM HR=61 bpm, RLRR=732/75 mmhg, SpO2=99.0 %, Resp=14 B/min, Comment=sinus 03:00 PM Access obtained by percutaneous puncture. 5Fr 10cm Terumo Glidesheath sheath placed in right Radial artery. [id number] tsoummers 03:00 PM Time: 14:45 Patient comfortable and pain free: Yes tsoummers 03:00 PM Time: 15:00 Patient given 4,000 units Heparin, 200 mcg Nitroglycerin, and 2.5 mg Verapamil Intraarterial by Tanner Hagan MD, [facility] tsoummers 03:00 PM Time: 14:45LOC: 4 = Oriented but drowsy tsoummers 03:00 PM 5Fr TIG catheter inserted over the wire [facility] oummers 03:00 PM 0.035 260cm Navilyst 3mmJ wire [id number] oumm 03:03 PM Catheter removed oumm 03:03 PM 5Fr FL3.5 catheter inserted over the wire [id number] oummers 03:04 PM Pressure channel 1 zeroed. 03:05 PM HR=67 bpm, JWZK=320/60 mmhg, SpO2=97.0 %, Resp=14 B/min 03:05 PM Recorded Pressure: Ao, HR=71, Condition=Condition 1 (Aorta) Ao 108/87/97 03:05 PM LCA angiography performed in multiple views. oummers 03:06 PM Catheter removed mm 03:06 PM 5Fr 3DRC catheter inserted over the wire [id number] tsoummers 03:07 PM Recorded Pressure: LV, HR=67, Condition=Condition 1 (Left Ventricle) LV 105/9/17 03:08 PM Catheter selectively placed in left ventricle tsoummers 03:08 PM Bolus angiogram of left Ventricle complete: 10 ml/sec for a total of 30 mls tsoummers 03:08 PM Recorded Pressure: LV, Ao, HR=67, Condition=Condition 1 (Left Ventricle) LV 120/7/20, (Aorta) Ao 112/67/94 03:09 PM Recorded Pressure: Ao, HR=66, Condition=Condition 1 (Aorta) Ao 111/90/101 03:09 PM RCA angiography performed in CATRACHO. tsoummers 03:09 PM Catheter removed tsoummers 03:10 PM HR=65 bpm, VOSJ=189/56 mmhg, SpO2=97.0 %, Resp=13 B/min, Comment=sinus 03:10 PM 5Fr FR5 catheter inserted over the wire [id number] tsoummers 03:12 PM Catheter removed tsoummers 03:12 PM 5Fr IM catheter inserted over the wire [id number] tsoummers 03:14 PM RCA angiography performed in multiple views. tsoummers 03:15 PM HR=72 bpm, TQCC=556/58 mmhg, SpO2=97.0 %, Resp=14 B/min, Comment=sinus 03:15 PM Catheter removed tsoummers 03:15 PM Time: 15:00 Patient comfortable and pain free: Yes tsoummers 03:15 PM Time: 15:00LOC: 4 = Oriented but drowsy tsoummers 03:16 PM 5Fr AR1 catheter inserted over the wire [id number] oummers 03:17 PM Recorded Pressure: Ao, HR=68, Condition=Condition 1 (Aorta) Ao 106/88/98 03:18 PM RCA angiography performed in multiple views. tsoummers 03:18 PM Catheter removed oumm 03:19 PM Wire removed tsoummers 03:19 PM Procedure completed at 15:19 tsoummers 03:20 PM HR=64 bpm, KZBS=171/63 mmhg, SpO2=97.0 %, Resp=27 B/min, Comment=sinus 03:20 PM Sign out completed: Radiation Dose 507.70 mGy Fluoro Time: 7.6 Isovue 370 - 200ml contrast 93 ml given by Tanner Hagan MD, [facility]. Complications: NoneCardiac Rehab Consult needed: NoConfirmed administered medications: Yes tsoummers 03:20 PM Isovue 370 - 200ml,1 Bottle(s) used. tsoummers 03:21 PM Arterial sheath pulled, Vasc Band closure device used and was Successful S/N. tsoummers 03:21 PM 11 ml air in Vasc Band. tsoummers 03:21 PM Post ECG NSR tsoummers 03:21 PM Post Blood Pressure 123/63 tsoummers 03:22 PM Information taught Cardiac Cath tsoummers 03:22 PM Education needs Procedure, Plan of Care, Disease Process, and Responsibilities of Patient in Care tsoummers 03:22 PM 15:22 Post Pulses Rt Radial 2+ tsoummers 03:22 PM Learning barriers :None tsoummers 03:22 PM Education Methods Verbal tsoummers 03:22 PM Education evaluation Able to repeat information tsoummers 03:23 PM Site status No bleeding/hematoma - Rt Wrist as reported by Jv Atkinson RT (R) at 15:22 tsoummers 03:25 PM Vitals capture stopped. 03:25 PM Report given to Lynne ISLAS Pt taken to 3B Room #49. 15:23 tsoummers 03:25 PM Plavix, Effient or Brilinta given No tsoummers 03:25 PM Delay to floor No tsoummers 03:25 PM Patient out of room: 15:25 tsoummers 03:25 PM Family placed in consult room. tsoummers 03:25 PM Complications: None tsoummers 03:26 PM Fluoro Time: 7.6 tsoummers 03:26 PM Isovue 370 - 200ml contrast 93 ml given by Tanner Hagan MD, [facility]. tsoummers 03:26 PM Radiation Dose 507.70 mGy tsoummers 03:27 PM Coronary Dominance: right tsoummers 03:30 PM Time: 15:15LOC: 4 = Oriented but drowsy tsoummers 03:31 PM Time: 15:15 Patient comfortable and pain free: Yes tsmmers Complications Complication None None Hemodynamics Pressures Site Systolic/A Wave Diastolic/V Wave Mean AO 108 87 97 LV 105 9 17 LV 120 7 20 AO 112 67 94 AO 111 90 101 AO 106 88 98 Post Procedure Information Blood Pressure: 123/63 mmHg Rhythm: NSR Closure Device Time Device Success/Fail 11/18/2016 3:19:00 PM Mechanical Compression Successful Site Checks Time Location Status Staff Sheath In? Note 03:22 PM Rt Wrist No bleeding/hematoma Jv Atkinson RT (R) Pulses Time Site Pre-Procedure Post-Procedure Note Bilateral DP & PT 2+ Bilateral radial 2+ 3:22:00 PM Rt Radial 2+ Updated by Nubia Hancock RN on 11/18/2016 3:31:44 PM electronically signed on 11/18/2016 3:32:05 PM with status of Final
--- NOTE | 2016-11-18 16:11 | Event Note ---
Date of Encounter: 11/18/16 Time of Encounter: 16:00 - Cardiology Event Note LHC completed. No obstructive CAD seen. No complications from procedure. Cardiology will sign off. Call with questions. out-pt f/u will be made in 2-3 weeks.
[2016-11-18] MEDS: *HR* HYDROcodone/Acet 5/325 mg TABLET PO PRN (17:16)
--- NOTE | 2016-11-18 17:31 | Discharge Summary ---
Date of Encounter: 11/18/16 Time of Encounter: 17:00 - Discharge Diagnosis (1) Chest pain Priority: Primary Status: Ruled-out Comments: Abnormal stress test. Left heart catheter unremarkable with no interventions indicated. Likely secondary to shoulder injury/shoulder pain. Set up with a new primary care provider, will need referral to orthopedic Qualifiers: Chest pain type: unspecified Qualified Code(s): R07.9 - Chest pain, unspecified (2) Hypertension, uncontrolled Priority: Secondary Status: Chronic Comments: Patient is aware that he has had high blood pressure in the past but states he does not take any medications and he has not had any follow-up with providers. Currently normotensive on low-dose lisinopril and beta heidi which will be continued upon discharge. Follow up outpatient. Set up with a new primary care provider. 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 He is supposed to have surgery on his left wrist however he states that this surgery would have put him in a cast for 5 months so he has refused to get this surgery. On examination, patient's range of motion is limited in his shoulder secondary to pain. Concern for rotator cuff injury. He states his pain is been worsened and present in his shoulder for the last 2 weeks. He denies any recent injuries. Anginal equivalent ruled out with negative left heart catheter later. He will need to follow up outpatient with orthopedics. Patient attempted to reassure me that he would follow up if we set him up with a new primary care provider and with an orthopedic doctor. His however remains skeptical. Unfortunately, inpatient MRI of left shoulder would not be indicated -will need to be done on outpatient basis - Discharge Medications Prescriptions: Aspirin 81 mg PO DAILY #30 Atorvastatin [Lipitor] 40 mg PO HS #30 tab HYDROcodone/Acet 5/325 mg [[place] 5-325 mg] 1 tab PO Q6H PRN #20 tab PRN Reason: Pain Lisinopril [Zestril] 2.5 mg PO DAILY #15 tab Metoprolol [Lopressor] 25 mg PO BID #60 tab Home Medications: Aspirin 81 mg PO DAILY #30 11/18/16 [Rx] Atorvastatin [Lipitor] 40 mg PO HS #30 tab 11/18/16 [Rx] HYDROcodone/Acet 5/325 mg [[place] 5-325 mg] 1 tab PO Q6H PRN #20 tab 11/18/16 [Rx ] Lisinopril [Zestril] 2.5 mg PO DAILY #15 tab 11/18/16 [Rx] Metoprolol [Lopressor] 25 mg PO BID #60 tab 11/18/16 [Rx] Allergies/Adverse Reactions: 3 Allergy/AdvReac Type Severity Reaction Status Date / Time Penicillins Allergy Swelling Verified 11/16/16 12:48 of Lip/Tongue/Throat Procedures/tests Complete & Pending: Procedures Performed prior 72 hours Category Date Time Status Left Heart Cath [CL Cardiac Catheterization] [CL] Systems Support Officer 11/18/16 08:00 Completed Routine NM bj perf SPECT multi [NM] Routine Exams 11/17/16 09:16 Taken ECG 12 lead ECG [ECG] AM 0600 Y 11/17/16 06:00 Ordered EV echocardiogram Routine Y 11/17/16 15:29 Completed SP pharm nuclear stress Routine Y 11/17/16 09:16 Completed Date of admission: 11/16/16 14:32 Primary care physician: PCP NONE Consults: 11/16/16 15:31 Consult to Nurse Navigator [CONS] Routine Comment: 11/17/16 14:28 Consult to Cardiology [CONS] Routine Comment: Consulting Provider: Doreen Macdonald Reason for Consult: abnl stress Time Notified: 14:29 Call Completed: Yes Discharging clinician: Gali Joshua Anticipated date of discharge: 11/18/16 (once post [facility] checks are completed) - Patient Status Disposition: Home, Self-Care Condition: Good Functional capacity at discharge: independent ambulation Overall status at discharge: patient is back to baseline - Discharge Instructions Follow Up With: Tommie Stubbs DO [Resident] - 11/24/16 3:45 pm Cardiology [facility] [Provider Group] Additional Instructions: Follow-up with new primary care provider as scheduled, follow-up with cardiology in 2-3 weeks. - Diet and Activity Activity: increase activity as tolerated, return to work once cleared by your PCP/specialist Diet: low fat, low cholesterol, low salt diet Hospital course: Mr. Damon is a 41 year old male with no past medical history other than hypertension and history of left arm injury in 2014. Patient is not on any home medications. Patient presented to the emergency room for chief complaint of chest pain. Patient said he woke up from his sleep experiencing left arm numbness that radiated to his left neck as well as sharp, stabbing pain to his left chest. Associated symptoms include diaphoresis, nausea, vomiting, and shortness of breath. The pain was constant without relieving factors. Patient stating the pain continued but then became intermittent and was more like an ache and when he went to a local urgent care, the EKG was abnormal so he was sent to the emergency department. Upon arrival to the emergency department, patient was given aspirin and Vicodin and EKG revealed ST changes but when compared to prior EKGs, no acute changes were noted. Workup in emergency department unremarkable. Chest x-ray negative. Patient was admitted to the hospitalist service for further evaluation and management. Troponins negative 3. Echocardiogram revealing ejection fraction of 50-55% with mild diastolic dysfunction. Patient was euvolemic on examination and denies shortness of breath throughout this admission. Patient had a stress test that was abnormal with an ejection fraction of 45% with visual evidence of TID. Cardiology was brought on board who proceeded with a left heart catheter. Left heart catheter with nonobstructive CAD. Patient was started on low-dose lisinopril, beta heidi, aspirin, and a statin. Accelerated hypertension noted upon arrival, normotensive after initiation of these medications. Lipid panel mildly abnormal total cholesterol 200 and LDL 107. During this admission, patient complained of left shoulder pain that radiated down his arm. Anginal equivalent was ruled out with a negative heart catheter. 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 Recommend further workup regarding orthopedic injuries outpatient. He was set up with a new primary care provider and schedule to see this new primary Or right or 5 days after discharge. He was given pain medication to last until this time- OARRS report negative. He was discharged home in stable condition with close outpatient follow-up recommended. ITS Impressions Chest X-Ray 11/16/16 12:55 IMPRESSION: 1. No active pulmonary disease. D/ / Marvin Cortes MD / Marvin Cortes MD Interpreting Provider: Marvin Cortes MD Echocardiogram Date of Study: 11/17/2016 Impressions: LVEF 50-55%. Low normal LV systolic function. There is evidence of mild diastolic dysfunction of the left ventricle. Normal right ventricular size and function. Mild mitral regurgitation. No pulmonary hypertension. Low Level Regadenoson Date of Study: 11/17/2016 Impression: There is a small defect involving the inferior apical wall and apex representing mild ischemia. No appreciable change in low level exercise ECG from baseline. Blood pressure initially increases but then drops at peak exercise. Gated EF = 45%. There is visual evidence of TID. Abnormal findings communicated to ordering provider. - Time Spent with Patient Total time spent providing and/or coordinating discharge services: - Constitutional Vitals: Temp Pulse Resp BP Pulse Ox 98.8 F 66 16 102/68 97 11/18/16 15:30 11/18/16 16:44 11/18/16 15:45 11/18/16 16:44 11/18/16 15:30 General appearance: Present: A&O X 3, pleasant, no acute distress, answers questions appropriately - Head Head exam: Present: atraumatic, normocephalic - Eye Eye exam: Present: PERRL, conjuntiva pink, sclera anicteric Pupils: Present: PERRL - Neck Neck exam general surgery: Present: supple, trachea midline. Absent: lymphadenopathy - Respiratory Respiratory exam: Present: CTAB. Absent: accessory muscle use, rales, respiratory distress, rhonchi, wheezes - Cardiovascular Cardiovascular exam: Present: RRR, +S1, +S2. Absent: diastolic murmur, gallop, rubs, systolic murmur - GI/Abdominal GI/Abdominal exam: Present: normal bowel sounds, soft, no peritoneal signs. Absent: distended, tenderness - Extremities Exam Extremities exam: Present: warm, radial pulses palpable and symmetrical. Absent : calf tenderness, cyanotic, pedal edema - Expanded Upper Extremities Exam Shoulder exam: Present: normal inspection, tenderness, tenderness over AC joint Upper Arm exam: Present: normal inspection, tenderness Vascular exam: Present: normal capillary refill. Absent: vascular compromise - Neurological Exam Neurological exam: Present: alert, CN II-XII intact, normal gait, oriented X3, no focal deficits, strengths equal and symetr throughout. Absent: pronater drift, facial droop, speech deficit - Skin Skin exam: Present: dry, intact, normal color, warm
[2016-11-18 17:57] VITALS: BP 118/84
== END 2016-11-18 19:00 | disposition home or self-care (01) ==
LOC: EMEROO 12:44 → 3BNU 12:44
PROVIDERS: ADMIT Internal Medicine; ATTEND Registered Nurse